=== PATIENT | female | born 1985 | race Caucasian/White ===

== ENCOUNTER 2017-02-14 11:48 | Emergency (ER) | payer SELFPAY | END 2017-02-14 12:53 | disposition home or self-care (01) | LOC: D.ER 11:48 | DX: R22.1 Localized swelling, mass and lump, neck (principal); L02.11 Cutaneous abscess of neck ==

== ENCOUNTER 2017-04-25 19:19 | Emergency (ER) | payer SELFPAY | END 2017-04-25 20:50 | disposition home or self-care (01) | LOC: D.ER 19:19 | DX: K02.9 Dental caries, unspecified (principal); S02.5XXA Fracture of tooth (traumatic), initial encounter for closed fracture; X58.XXXA Exposure to other specified factors, initial encounter; Y93.89 Activity, other specified; Y92.89 Other specified places as the place of occurrence of the external cause; K08.89 Other specified disorders of teeth and supporting structures; R68.84 Jaw pain ==

== ENCOUNTER 2017-11-19 15:47 | Emergency (ER) | payer MEDICAID | END 2017-11-19 17:55 | disposition home or self-care (01) | LOC: D.ER 15:47 | DX: K08.89 Other specified disorders of teeth and supporting structures (principal); K04.7 Periapical abscess without sinus ==